=== PATIENT | male | born 1990 | race Two or more races ===

== ENCOUNTER 2020-12-09 10:22 | Emergency (ER) | payer MEDICAID ==
[~2020-12-09] VITALS: Ht 167.6 cm; Wt 63.5 kg
[2020-12-09 13:33] VITALS: BP 121/83
== END 2020-12-09 14:40 | disposition home or self-care (01) ==
LOC: ER 10:22
DX: S90.112A Contusion of left great toe without damage to nail, initial encounter (principal); W22.8XXA Striking against or struck by other objects, initial encounter; Y93.89 Activity, other specified; Y92.89 Other specified places as the place of occurrence of the external cause; Y99.8 Other external cause status
CPT/HCPCS: 73630